=== PATIENT | male | born 1975 | race Caucasian/White ===

== ENCOUNTER 2017-02-27 12:19 | Emergency (ER) | payer MEDICARE, OTHER ==
[~2017-02-27] VITALS: Ht 185.4 cm; Wt 77.1 kg
[~2017-02-27 12:19] MED LIST: VICODIN PO
== END 2017-02-27 13:18 | disposition home or self-care (01) ==
LOC: CFTX 12:19 → CED 12:19 → CFTX 13:14
DX: S01.85XA Open bite of other part of head, initial encounter (principal); S01.81XA Laceration without foreign body of other part of head, initial encounter; F17.210 Nicotine dependence, cigarettes, uncomplicated; W50.3XXA Accidental bite by another person, initial encounter; Y92.009 Unspecified place in unspecified non-institutional (private) residence as the place of occurrence of the external cause
CPT/HCPCS: 12011; 99283